=== PATIENT | male | born 1975 | race Caucasian/White ===

== ENCOUNTER 2017-07-13 11:12 | Emergency (ER) | payer OTHER ==
[2017-07-13 11:34] VITALS: TEMP 97; BMI 30.5
[2017-07-13 12:20] LABS: BASO % 0.4 % (0.0-2.0); EOS % 0.5 % (0.0-4.0); LYMPH # 1.7 K/uL (1.0-4.3); LYMPH % 30.5 % (20.0-40.0); MEAN CELL VOLUME 87.1 fl (80.0-94.0); MEAN CORPUSCULAR HEMOGLOBIN 29.5 pg (27.0-31.0); MEAN CORPUSCULAR HGB CONC 33.8 g/dL (33.0-37.0); MEAN PLATELET VOLUME 8.1 fl (7.2-11.7); MONO # 0.4 K/uL (0.0-0.8); MONO % 7.6 % (0.0-10.0); NEUT # 3.5 K/uL (1.8-7.0); NRBC % 0.1 % (0.0-0.0); RED CELL DISTRIBUTION WIDTH 12.6 % (11.5-14.5); WHITE BLOOD COUNT 5.7 K/uL (4.8-10.8)
[2017-07-13 12:24] LABS: BLOOD UREA NITROGEN 13 mg/dl (9-20); CARBON DIOXIDE 27 mmol/L (22-30); CHLORIDE 106 mmol/L (98-107); GFR AFRICAN-AMERICAN > 60; GLUCOSE,RANDOM 97 mg/dL (75-110); MAGNESIUM 1.8 MG/DL (1.6-2.3); POTASSIUM 4.3 MMOL/L (3.6-5.0); SODIUM 141 mmol/l (132-148)
--- NOTE | 2017-07-13 12:40 | ED PDOC ---
HPI: Chest Pain Time Seen by Provider: 07/13/17 11:45 Chief Complaint (Nursing): Chest Pain Chief Complaint (Provider): CP History Per: Patient (41 Y/O MALE HERE FOR LEFT SIDED CHEST PAIN INTERMITTENT X 1 WEEK NOT ASSOCIATED WITH PARTICULAR ACTIVITY. NOTES DIFFICULTY WITH INSPIRATION AT TIMES BUT DOES NOT FEEL IT IS CONSISTENTLY RELATED. DENIES ANY TRAUMA. HAS RECENT DEPRESSION AND STARTED ON WELLBUTRIN 2 WEEKS PRIOR FOR THIS. QUIT SMOKING 2 WEEKS AGO. NO RECENT DRUG USE THIS MONTH. NO PRIOR MT HX. 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 NO FAMILY H/O MT.) Past Medical History Reviewed: Historical Data, Nursing Documentation, Vital Signs Vital Signs: Last Vital Signs Temp 97 F L 07/13/17 11:33 Pulse 64 07/13/17 11:33 Resp BP 118/73 07/13/17 11:33 Pulse Ox 98 07/13/17 12:41 - Medical History PMH: Depression - Family History Family History: States: No Known Family Hx - Home Medications Home Medications: Ambulatory Orders Medication Instructions Recorded buPROPion XL [Wellbutrin XL] 150 mg PO QAM 07/13/17 - Allergies Allergies/Adverse Reactions: Allergies Allergy/AdvReac Type Severity Reaction Status Date / Time No Known Allergies Allergy Verified 07/13/17 11:48 Review of Systems ROS Statement: Except As Marked, All Systems Reviewed And Found Negative Cardiovascular: Positive for: Chest Pain Physical Exam - Reviewed Nursing Documentation Reviewed: Yes Vital Signs Reviewed: Yes - Physical Exam Appears: Positive for: Well, Non-toxic, No Acute Distress Head Exam: Positive for: ATRAUMATIC, NORMAL INSPECTION, NORMOCEPHALIC Skin: Positive for: Normal Color, Warm, DRY Eye Exam: Positive for: EOMI, Normal appearance, PERRL ENT: Positive for: Normal ENT Inspection Neck: Positive for: Normal, Painless ROM Cardiovascular/Chest: Positive for: Regular Rate, Rhythm Respiratory: Positive for: CNT, Normal Breath Sounds Gastrointestinal/Abdominal: Positive for: Normal Exam, Bowel Sounds, Soft Back: Positive for: Normal Inspection Extremity: Positive for: Normal ROM Neurologic/Psych: Positive for: Alert, Oriented - Laboratory Results Result Diagrams: 07/13/17 12:08 07/13/17 12:08 - ECG O2 Sat by Pulse Oximetry: 98 - Progress ED Course And Treament: ASA 324 MG X 1 DOSE D/W DR. CISSE CXR: IMPRESSION: No active pulmonary disease common no pneumothorax. Postoperative changes left uli thorax including surgical clips, pleural thickening and rib deformities. EKG REPEATED 16:23: SINUS BRADYCARDIA; NO ECTOPY NO ACUTE CHANGES. Disposition - Clinical Impression Clinical Impression: Chest pain - Patient ED Disposition Is Patient to be Admitted: No - Disposition Referrals: Lauren Reynaga MD [Staff Provider] - Disposition: Routine/Home Disposition Time: 17:32 Condition: FAIR Instructions: Chest Pain (DC) Forms: [facility] (Turkmen), [facility] ED School/Work Excuse
--- NOTE | 2017-07-13 12:57 | RAD ---
HISTORY: R/O PNEUMOTHORAX left-sided chest pain and tightness COMPARISON: No prior. TECHNIQUE: Chest PA and lateral FINDINGS: LUNGS: No active pulmonary disease. PLEURA: No pneumothorax. Volume loss, focal pleural thickening. Postoperative changes left uli thorax. CARDIOVASCULAR: Normal. OSSEOUS STRUCTURES: No significant abnormalities. VISUALIZED UPPER ABDOMEN: Normal. OTHER FINDINGS: None. IMPRESSION: No active pulmonary disease common no pneumothorax. Postoperative changes left uli thorax including surgical clips, pleural thickening and rib deformities.
[2017-07-13 17:56] VITALS: BP 137/86; PULSE 66; RESP 18; O2SAT 96
--- NOTE | 2017-07-14 19:10 | CARD ---
APPROVED REPORT EKG Measurement Heart [id number] NM 142P31 [id number] <Conclusion> Sinus bradycardia Otherwise normal ECG
--- NOTE | 2017-07-14 19:26 | CARD ---
APPROVED REPORT EKG Measurement Heart [id number] [place] 134P26 [id number] <Conclusion> Normal sinus rhythm Normal ECG
== END 2017-07-13 17:47 | disposition home or self-care (01) ==
LOC: H.ER 11:12
DX: R07.89 Other chest pain (principal); Z87.891 Personal history of nicotine dependence